=== PATIENT | male | born 1955 | race Caucasian/White ===

== ENCOUNTER → 2021-02-03 | Outpatient (CLI) | payer MEDICARE ==
[~2021-02-03] MED LIST: CO Q-1010 MG PO; FIBER PO; RED YEAST RICE600 MG PO; TUMERIC CURCUMIN PO; [UNRECOGNIZED DRUG - OTHER] PO
== END ==
LOC: CT 09:28
PROVIDERS: ATTEND Family Medicine
DX: R22.9 Localized swelling, mass and lump, unspecified (principal); Z87.891 Personal history of nicotine dependence
CPT/HCPCS: 71250; 76700; 76882

== ENCOUNTER → 2021-02-19 | Outpatient (CLI) | payer MEDICARE ==
[~2021-02-19] MED LIST changes: +IOPAMIDOL 370 MG/ML 200 ML INFUS..BTL INJ ONE; +SODIUM CHLORIDE 0.9% 50ML 50 ML ONE
== END ==
LOC: CT 09:19
PROVIDERS: ATTEND Family Medicine
DX: N28.1 Cyst of kidney, acquired (principal)
CPT/HCPCS: 36415; 74170; 82565; 84520; Q9967

== ENCOUNTER → 2022-06-16 | Outpatient (CLI) | payer MEDICARE ==
[~2022-06-16] MED LIST changes: +IOPAMIDOL 370 MG/ML 100 ML INFUS..BTL INJ ONE; -IOPAMIDOL 370 MG/ML 200 ML INFUS..BTL INJ ONE; +SODIUM CHLORIDE 0.9% 100 ML ONE; -SODIUM CHLORIDE 0.9% 50ML 50 ML ONE
[2022-06-16 09:17] LABS: CREATININE, SERUM 1.11 mg/dL (0.72-1.25)
== END ==
LOC: CT 08:10
PROVIDERS: ATTEND Internal Medicine Interventional Cardiology
DX: I73.9 Peripheral vascular disease, unspecified (principal)
CPT/HCPCS: 36415; 74174; 82565; 84520; J7050; Q9967

== ENCOUNTER → 2022-07-07 | Day surgery (SDC) | payer MEDICARE ==
[2022-07-03 08:22] LABS: BASOPHILS # (AUTO) 0.1 (0.0-0.1); BASOPHILS % 1.2 % (0.0-1.0); EOSINOPHILS # (AUTO) 0.2 (0.0-0.4); EOSINOPHILS % 3.9 % (0.0-6.0); HEMATOCRIT 43.6 % (38.2-49.6); HEMOGLOBIN 14.2 g/dL (14.0-18.0); LYMPHOCYTES # (AUTO) 1.3 (1.0-3.2); LYMPHOCYTES % 23.5 % (18.0-39.1); MEAN CORPUSCULAR HEMOGLOBIN 29.1 pg (28-32); MEAN CORPUSCULAR HGB CONC 32.6 g/dL (31-35); MEAN CORPUSCULAR VOLUME 89.3 fL (81-99); MONOCYTES # (AUTO) 0.6 (0.2-0.8); NEUTROPHILS # (AUTO) 3.4 (2.1-6.9); NEUTROPHILS % 60.2 % (38.7-80.0); PLATELET COUNT 269 x10e3/uL (140-360); RED BLOOD COUNT 4.88 x10e6/uL (4.3-5.7); RED CELL DISTRIBUTION WIDTH 13.2 % (11.7-14.4)
[2022-07-03 08:43] LABS: ALBUMIN 3.4 g/dL (3.5-5.0); ALBUMIN/GLOBULIN RATIO 1.1 (0.8-2.0); ANION GAP 12.2 mmol/L (8-16); CALCIUM 8.8 mg/dL (8.4-10.2); CHOL/HDL RATIO 3.5 (3.9-4.7); POTASSIUM 4.2 mmol/L (3.5-5.1)
[~2022-07-07] VITALS: Ht 185.4 cm; Wt 90.7 kg
[2022-07-07] VITALS (11 sets, daily range): BP systolic 115–136; BP diastolic 70–93
[~2022-07-07] MED LIST changes: +ALPRAZOLAM 0.5 MG TAB ONE; +ASPIRIN CHEW81 MG PO; +ATORVASTATIN CA20 MG PO; +DIPHENHYDRAMINE HCL 25 MG CAP ONE; +FENTANYL CITRATE/PF 100MCG/2 ML INJ ONE; +HEPARIN SOD/SOD CHLORIDE 2,000 ML ONE; +LIDOCAINE HCL 2% LOCAL 20 ML VIAL ONE; +MIDAZOLAM HCL 2 MG/2 ML VIAL ONE; -SODIUM CHLORIDE 0.9% 100 ML ONE; +SODIUM CHLORIDE 0.9% 1000ML 1,000 ML ONE; +VERAPAMIL HCL 2.5 MG/ML 2 ML VIAL ONE; +VITAPULSE PO
== END | disposition home or self-care (01) ==
LOC: CATH LAB 11:45
PROVIDERS: ATTEND Internal Medicine Interventional Cardiology
DX: I25.118 Atherosclerotic heart disease of native coronary artery with other forms of angina pectoris (principal); R94.39 Abnormal result of other cardiovascular function study; I71.40 Abdominal aortic aneurysm, without rupture, unspecified; J44.9 Chronic obstructive pulmonary disease, unspecified; Z71.82 Exercise counseling; Z71.3 Dietary counseling and surveillance; F17.290 Nicotine dependence, other tobacco product, uncomplicated; Z88.6 Allergy status to analgesic agent; Z88.0 Allergy status to penicillin; Z01.812 Encounter for preprocedural laboratory examination; Z79.82 Long term (current) use of aspirin; Z79.899 Other long term (current) drug therapy; Z82.49 Family history of ischemic heart disease and other diseases of the circulatory system; Z82.3 Family history of stroke
CPT/HCPCS: 36415; 80053; 80061; 85025; 93454; C1887; C1894; J2001; J2250; J3010; J7030; Q9967; 99152

== ENCOUNTER → 2024-07-20 | Outpatient (REF) | payer MEDICARE ==
[~2024-07-20] MED LIST changes: -ALPRAZOLAM 0.5 MG TAB ONE; -DIPHENHYDRAMINE HCL 25 MG CAP ONE; -FENTANYL CITRATE/PF 100MCG/2 ML INJ ONE; +FISH OIL 1,0001 EAC7 PO; -HEPARIN SOD/SOD CHLORIDE 2,000 ML ONE; -IOPAMIDOL 370 MG/ML 100 ML INFUS..BTL INJ ONE; -LIDOCAINE HCL 2% LOCAL 20 ML VIAL ONE; -MIDAZOLAM HCL 2 MG/2 ML VIAL ONE; +PROBIOTIC PO; -SODIUM CHLORIDE 0.9% 1000ML 1,000 ML ONE; +TUMERIC PO; -VERAPAMIL HCL 2.5 MG/ML 2 ML VIAL ONE; +[UNRECOGNIZED DRUG - OTHER] PO
== END ==
LOC: US 09:32
PROVIDERS: ATTEND Nurse Practitioner
DX: R10.84 Generalized abdominal pain (principal); K76.0 Fatty (change of) liver, not elsewhere classified
CPT/HCPCS: 76700; 76856

== ENCOUNTER 2024-09-19 09:16 | Inpatient (IN) | payer MEDICARE ==
[2024-09-13 09:09] LABS: BASOPHILS # (AUTO) 0.1 (0.0-0.1); BASOPHILS % 0.9 % (0.0-1.0); EOSINOPHILS # (AUTO) 0.7 (0.0-0.4); EOSINOPHILS % 5.6 % (0.0-6.0); HEMATOCRIT 45.3 % (38.2-49.6); HEMOGLOBIN 15.4 g/dL (14.0-18.0); LYMPHOCYTES # (AUTO) 1.6 (1.0-3.2); LYMPHOCYTES % 13.5 % (18.0-39.1); MEAN CORPUSCULAR HEMOGLOBIN 29.7 pg (28-32); MEAN CORPUSCULAR VOLUME 87.3 fL (81-99); MONOCYTES # (AUTO) 1.1 (0.2-0.8); MONOCYTES % 9.5 % (4.4-11.3); NEUTROPHILS # (AUTO) 8.3 (2.1-6.9); NEUTROPHILS % 69.6 % (38.7-80.0); PLATELET COUNT 222 x10e3/uL (140-360); RED BLOOD COUNT 5.19 x10e6/uL (4.3-5.7); RED CELL DISTRIBUTION WIDTH 13.9 % (11.7-14.4); WHITE BLOOD COUNT 11.96 x10e3/uL (4.8-10.8)
[2024-09-13 09:48] LABS: ALBUMIN 3.3 g/dL (3.5-5.0); ALBUMIN/GLOBULIN RATIO 1.2 (0.8-2.0); ANION GAP 13.5 mmol/L (8-16); BILIRUBIN,TOTAL 0.9 mg/dL (0.2-1.2); CALCIUM 8.7 mg/dL (8.4-10.2); CREATININE, SERUM 1.1 mg/dL (0.72-1.25); POTASSIUM 3.5 mmol/L (3.5-5.1)
[~2024-09-19] VITALS: Ht 190.5 cm; Wt 97.5 kg
[2024-09-19] VITALS (17 sets, daily range): BP systolic 118–154; BP diastolic 75–97; PULSE 70–79; RESP 13–22; TEMP 96–97.9; O2SAT 95–100
[~2024-09-19 09:16] MED LIST changes: +B-121000 MCG; +IPRATROPIU0.2 MG/1 M INH; +MIRALAX17 GM PO; +OMEPRAZOLE40 MG PO; +PREDNISONE50 MG PO; +SYMBICORT 16010.2 GM INH; +VENTOLIN HFA18 GM INH
[2024-09-19] MEDS: VERAPAMIL HCL 2.5 MG/ML 2 ML VIAL ONE (19:45)
[2024-09-19] MEDS: HEPARIN SOD/SOD CHLORIDE 2,000 ML ONE (19:45)
[2024-09-19] MEDS: SODIUM CHLORIDE 0.9% 1000ML 1,000 ML ONE (19:45)
[2024-09-19] MEDS: FENTANYL CITRATE/PF 100MCG/2 ML INJ ONE (19:46)
[2024-09-19] MEDS: LIDOCAINE HCL 2% LOCAL 20 ML VIAL ONE (19:46)
[2024-09-19] MEDS: MIDAZOLAM HCL 2 MG/2 ML VIAL ONE ×2 (19:46)
[2024-09-19] MEDS: ASPIRIN 325 MG TAB ONE (19:46)
[2024-09-19] MEDS: PRASUGREL 10 MG TAB ONE (19:47)
[2024-09-19] MEDS: ACETAMINOPHEN 325 MG TAB PO PRN (20:19)
[2024-09-19] MEDS ORDERED: ALBUTEROL 90 MCG/ACT INHALER INH PRN (22:00)
[2024-09-19] MEDS: ASPIRIN 81 MG ENTERIC COATED PO SCH (22:35)
[2024-09-19] MEDS: ATORVASTATIN 20 MG TAB PO SCH (22:36)
[2024-09-20] VITALS (7 sets, daily range): BP systolic 112–148; BP diastolic 62–91; PULSE 71–84; RESP 18; TEMP 97.6–98.4; O2SAT 93–96
[2024-09-20] MEDS: BUDESONIDE/FORMOTEROL 80/4.5 MCG INHALER IH SCH (07:00)
[2024-09-20] MEDS: OMEPRAZOLE 20 MG CAP PO SCH (08:43)
[2024-09-20] MEDS ORDERED: EFFIENT10 MG PO (11:34)
[2024-09-20] MEDS ORDERED: IOPAMIDOL 370 MG/ML 100 ML INFUS..BTL INJ ONE (15:07)
[2024-09-20] MEDS ORDERED: ALBUTEROL/IPRATROPIUM 3 ML NEB NEB PRN (15:15)
[2024-09-20] MEDS: METHYLPREDNISOLONE SOD SUCC 40 MG/ML VIAL 1ML IV STA (15:47)
[2024-09-20] MEDS ORDERED: ALBUTEROL 90 MCG/ACT INHALER INH PRN (16:00)
[2024-09-20] MEDS ORDERED: POLYETHYLENE GLYCOL 3350 17 GM PACK PO PRN (16:00)
[2024-09-20] MEDS ORDERED: BUDESONIDE/FORMOTEROL 160/4.5MCG INHALER INH SCH ×3 (17:00→19:00)
[2024-09-20] MEDS: Doxycycline IV 100 MG in SODIUM CHLORIDE 0.9% 100 ML IV SCH (18:00)
[2024-09-20] MEDS ORDERED: ZOLPIDEM TARTRATE 5 MG TAB PO PRN (21:00)
[2024-09-20] MEDS ORDERED: ATORVASTATIN 20 MG TAB PO SCH (21:00)
[2024-09-21] VITALS (7 sets, daily range): BP systolic 112–148; BP diastolic 62–91; PULSE 71–80; RESP 18–20; TEMP 97.5–98; O2SAT 93–97
[2024-09-21] MEDS: CLOPIDOGREL BISULFATE 75 MG TAB PO SCH (08:50)
[2024-09-21] MEDS: PANTOPRAZOLE SOD 40 MG TABEC PO SCH (08:50)
[2024-09-21] MEDS ORDERED: ASPIRIN 81 MG CHEW TAB PO SCH ×2 (09:00→21:00)
[2024-09-21] MEDS: METHYLPREDNISOLONE SOD SUCC 125 MG/2ML VIAL IV ONE (11:26)
[2024-09-21] MEDS: DOXYCYCLINE HYCLATE TABLET 100 MG TAB PO SCH (17:00)
[2024-09-21] MEDS ORDERED: DOXYCYCLINE HY100 MG PO (17:47)
[2024-09-21] MEDS ORDERED: ASPIRIN CHEW81 MG PO (17:47)
[2024-09-21] MEDS ORDERED: PLAVIX75 MG PO (17:47)
== END 2024-09-21 19:37 | disposition home or self-care (01) | DRG 982 ==
LOC: CATH LAB 09:16 → MED/SURG3 18:59 → INTOOBSV 18:59 → OBSVTOIN 09-21 10:08
PROVIDERS: ADMIT Internal Medicine Interventional Cardiology; ATTEND Internal Medicine Interventional Cardiology
PROC: 027034Z Dilation of Coronary Artery, One Artery with Drug-eluting Intraluminal Device, Percutaneous Approach (ICD-10-PCS; principal; 2024-09-21)
PROC: 4A023N7 Measurement of Cardiac Sampling and Pressure, Left Heart, Percutaneous Approach (ICD-10-PCS; 2024-09-21)
PROC: B2151ZZ Fluoroscopy of Left Heart using Low Osmolar Contrast (ICD-10-PCS; 2024-09-21)
PROC: B2111ZZ Fluoroscopy of Multiple Coronary Arteries using Low Osmolar Contrast (ICD-10-PCS; 2024-09-21)
DX: J44.1 Chronic obstructive pulmonary disease with (acute) exacerbation (principal); I25.110 Atherosclerotic heart disease of native coronary artery with unstable angina pectoris; I10 Essential (primary) hypertension; I71.40 Abdominal aortic aneurysm, without rupture, unspecified; E78.2 Mixed hyperlipidemia; K21.9 Gastro-esophageal reflux disease without esophagitis; Z87.891 Personal history of nicotine dependence; Z88.6 Allergy status to analgesic agent; Z88.0 Allergy status to penicillin; Z79.82 Long term (current) use of aspirin; Z79.51 Long term (current) use of inhaled steroids
CPT/HCPCS: 36415; 71260; 76937; 80053; 85025; 92928; 93458; 99152; 99153; C1874; C1887; G0378; J2003; J2250; J2470; J2919; J7030; J7050; Q9967